=== PATIENT | female | born 2005 | race Two or more races ===

== ENCOUNTER 2025-02-12 07:02 | Inpatient (IN) | payer MEDICAID, SELFPAY ==
[2025-02-12] VITALS (29 sets, daily range): BP systolic 116–135; BP diastolic 66–82; PULSE 28–105; RESP 16–99; TEMP 36.7–37.2; O2SAT 80–100; BMI 20.3
[2025-02-12] MEDS: Ampicillin Inj 2,000 MG in SODIUM CHLORIDE 0.9% (POP) 100 ML 200 MG IV (07:51)
[2025-02-12] MEDS: MINERAL OIL 30 ML UDC TOP (08:31)
[2025-02-12] MEDS: OXYTOCIN in NS 20 units 20 UNIT/1,000 ML BAG 125 UNIT IV (08:31)
[2025-02-12] MEDS: BENZO/LANO/ALOE (Dermoplast) 60 GM CAN 1 SPRAY TOP (08:31)
--- NOTE | 2025-02-12 08:42 | PD.LDHP ---
Documentation for date of: 02/12/25 OB Labor/Induct. HPI History of Present Illness Chief complaint: no PNC / SROm / 37 weeks : 4 Para: 1 History of Vaginal deliveries: 1 History of sections: No History of : No MICHOACANO: 03/04/25 Gestational Age (weeks): 37 Gestational Age (days): 1 History of present illness: no PNC/ SROM at 0625 this am and UC History of Present Dating criteria: based on LMP only Adequate Care: No Ultrasounds: none Obstetrical complications: other (no PNC) Medical complications: other (unknown/ patient denies) Narrative: panel ordered Review of Systems Review of Systems Systems Reviewed: All systems reviewed, normal except as documented Past Medical History Surgical History SURGICAL: Negative Section Meds Home Medications and Allergies Home Medications ?Medication ?Instructions ?Recorded ?Confirmed ?Type vits no.130-ferrous fum tab 02/12/25 History 27 mg iron-folic acid 800 mcg tablet ( Vitamin) Allergies Allergy/AdvReac Type Severity Reaction Status Date / Time No Known Allergies Allergy Verified 12/25/23 19:13 OB Exam Physical Exam Vital signs: Pulse BP Pulse Ox 72 129/78 100 02/12/25 08:39 02/12/25 08:39 02/12/25 08:08 Narrative: Size equal to dates uterus non tender Alert and oriented x 3 no shortness of breath Pain no chest pain no palpitations Chest no wheezing CVS regular rate and rhythm No CVAT Abdomen nontender, normal bowel sounds No guarding no rigidity No hernias regular/ contractions non tender FHR is category 1 feta presentation is vertex cervix 5 cm, grossly SROm OB Results Labs 02/13/25 05:24 OB Assessment & Plan Assessment and Plan (1) PROM with onset of labor within 24 hours of rupture: Status: Acute (2) 37 weeks gestation of : Status: Acute (3) Insufficient care, delivered, current hospitalization: Status: Acute Additional Plan Plan: GBS prophylaxis tx Additional Plan Comment: admit /anticipate vaginal delivery / labs/ Tox screen (1) PROM with onset of labor within 24 hours of rupture Qualifiers: PROM gestational age: unspecified gestational age Qualified Code(s): O42.00 - Premature rupture of membranes, onset of labor within 24 hours of rupture, unspecified weeks of gestation
--- NOTE | 2025-02-12 08:50 | PD.LDDELS ---
Data (Flynn) Data Hx Section: No Maternal Blood Type: O Pos : 4 Para: 1 Delivery Data (Flynn) Labor Data Initiation of labor: Spontaneous Induction/Augmentation Agent: None ROM date: 02/12/25 Amniotic membrane rupture type: Spontaneous Amniotic fluid description: Clear Delivery Data Gestational age (weeks): 37 Gestational age (days): 1 Placenta delivery date: 02/12/25 Delivered by: Vivian Velez Delivery Method Delivery method: Normal Vaginal Delivery Presentation: Vertex position: OA Anesthesia Type Anesthesia Type: None Placenta Placenta delivery description: Spontaneous Episiotomy Episiotomy description: None EBL Estimated blood loss (ml): 150 Umbilical Cord cord description: 3 Vessels Data (Flynn) Data order: 1 's gender: Female
[2025-02-12 09:05] LABS: Amphetamine/Metham Scrn,Ur OB Negative (Negative); Benzoylecgonine Screen, Ur OB Negative (Negative); Opiate Screen,Urine OB Negative (Negative); THC Screen,Urine OB Negative (Negative)
[2025-02-12 09:11] LABS: Basophils # (Auto) 0.0 Thou/mm3 (0.0-0.2); Basophils % (Auto) 0 % (0-2.5); Eosinophils # (Auto) 0.0 Thou/mm3 (0.0-0.5); Eosinophils % (Auto) 0 % (0-10); Hematocrit 31.1 % (36.0-46.0); Hemoglobin 9.1 g/dL (12.0-16.0); Immature Granulocytes Auto 0.04 Thou/mm3 (0.00-0.00); Lymphocytes # (Auto) 2.0 Thou/mm3 (1.0-4.8); Lymphocytes % (Auto) 22 % (10-50); Mean Corpuscular HGB Conc 29.3 g/dl (31.0-37.0); Mean Corpuscular Hemoglobin 20.0 pg (25.0-35.0); Mean Corpuscular Volume 69 fL (80-100); Monocytes # (Auto) 0.6 Thou/mm3 (0.0-0.8); Monocytes % (Auto) 7 % (0-12); Neutrophils # (Auto) 6.0 Thou/mm3 (1.8-7.7); Neutrophils % (Auto) 70 % (37-80); Nucleated Red Blood Cell # 0.00 Thou/mm3 (0.00-0.00); Nucleated Red Blood Cell % 0 /100 WBC (0); Platelet Count 262 Thou/mm3 (140-440); RDW Standard Deviation 41.3 fL (36.4-46.3); Red Blood Count 4.54 Miln/mm3 (4.00-5.20); White Blood Count 8.7 Thou/mm3 (3.6-11.0)
[2025-02-12 11:50] LABS: HIV (1&2) Antibody Rapid Non-Reactive
[2025-02-12 13:34] LABS: Basophils # (Auto) 0.0 Thou/mm3 (0.0-0.2); Basophils % (Auto) 0 % (0-2.5); Eosinophils # (Auto) 0.0 Thou/mm3 (0.0-0.5); Eosinophils % (Auto) 0 % (0-10); Hematocrit 26.2 % (36.0-46.0); Immature Granulocytes Auto 0.03 Thou/mm3 (0.00-0.00); Lymphocytes # (Auto) 1.1 Thou/mm3 (1.0-4.8); Lymphocytes % (Auto) 10 % (10-50); Mean Corpuscular HGB Conc 29.4 g/dl (31.0-37.0); Mean Corpuscular Hemoglobin 20.2 pg (25.0-35.0); Mean Corpuscular Volume 69 fL (80-100); Monocytes # (Auto) 0.6 Thou/mm3 (0.0-0.8); Monocytes % (Auto) 5 % (0-12); Neutrophils # (Auto) 9.1 Thou/mm3 (1.8-7.7); Neutrophils % (Auto) 85 % (37-80); Nucleated Red Blood Cell # 0.00 Thou/mm3 (0.00-0.00); Nucleated Red Blood Cell % 0 /100 WBC (0); Platelet Count 193 Thou/mm3 (140-440); RDW Standard Deviation 41.2 fL (36.4-46.3); Red Blood Count 3.81 Miln/mm3 (4.00-5.20); White Blood Count 10.7 Thou/mm3 (3.6-11.0)
[2025-02-12 13:42] LABS: Hemoglobin 7.7 g/dL (12.0-16.0)
--- NOTE | 2025-02-12 15:00 | PC.NURSE ---
DR. DIETZ AWARE OF DECREASE IN HGB/HCT. ORDERS RECEIVED FOR LABS IN AM.
[2025-02-12 15:58] LABS: Path Review Blood Smear Sent to Pathologist
[2025-02-12 16:40] LABS: Syphilis Nonreactive (Nonreactive)
[2025-02-12 19:41] LABS: Chlamydia trachomatis PCR Negative (Not Detect); Neisseria Gonorrhoeae DNA PCR Negative (Not Detect); Trichomonas Negative (Negative)
--- NOTE | 2025-02-12 21:03 | PC.NURSE ---
Access pt's chart to assist primary nurse.
[2025-02-12 22:42] LABS: Hepatitis B Surface Antigen Non Reactive (Non React); Rubella, IgG Antibody Reactive (Immune)
[2025-02-13 03:50] VITALS: BP 118/76; PULSE 89; RESP 18; TEMP 37.1; O2SAT 97
[2025-02-13] MEDS: IBUPROFEN TAB 400 MG TABLET 600 MG PO (04:18)
[2025-02-13 05:53] LABS: Basophils # (Auto) 0.0 Thou/mm3 (0.0-0.2); Basophils % (Auto) 0 % (0-2.5); Eosinophils # (Auto) 0.1 Thou/mm3 (0.0-0.5); Eosinophils % (Auto) 1 % (0-10); Hematocrit 25.7 % (36.0-46.0); Immature Granulocytes Auto 0.05 Thou/mm3 (0.00-0.00); Lymphocytes # (Auto) 2.0 Thou/mm3 (1.0-4.8); Lymphocytes % (Auto) 21 % (10-50); Mean Corpuscular HGB Conc 30.4 g/dl (31.0-37.0); Mean Corpuscular Hemoglobin 20.2 pg (25.0-35.0); Mean Corpuscular Volume 67 fL (80-100); Monocytes # (Auto) 0.6 Thou/mm3 (0.0-0.8); Monocytes % (Auto) 6 % (0-12); Neutrophils # (Auto) 6.8 Thou/mm3 (1.8-7.7); Neutrophils % (Auto) 71 % (37-80); Nucleated Red Blood Cell # 0.00 Thou/mm3 (0.00-0.00); Nucleated Red Blood Cell % 0 /100 WBC (0); Platelet Count 191 Thou/mm3 (140-440); RDW Standard Deviation 39.8 fL (36.4-46.3); Red Blood Count 3.86 Miln/mm3 (4.00-5.20); White Blood Count 9.5 Thou/mm3 (3.6-11.0)
[2025-02-13 06:08] LABS: Hemoglobin 7.8 g/dL (12.0-16.0)
[2025-02-13 07:00] VITALS: BP 128/85; PULSE 71; RESP 16; TEMP 36.7; O2SAT 99
--- NOTE | 2025-02-13 08:24 | PD.LDPPPRG ---
Subjective Subjective Interval history: The patient is a 19-year-old G4 now P2012 status post vaginal delivery 02/12/2025 at 8:[address] Veras admitted and delivered the patient. She came in by ambulance approximately 6:15 in the morning in active labor 5 to 6 cm dilated 02/12/2025. This morning the patient is day #1. She is resting comfortably in bed. She appears quite pale. Her predelivery hemoglobin was 9.1 today, her post deliveryhemoglobin is down to 7.8. The patient did not get care this . She was getting vitamins from a [facility] provider. We had no records available at delivery. Her drug screen was negative and all labs are up-to-date and on the chart and normal. The patient would like to be discharged later today. She is voiding, tolerating a general diet, and passing flatus. Her bleeding is minimal. Exam Vital Signs Temp Pulse Resp BP Pulse Ox O2 Del Method 98.1 F 71 16 128/85 H 99 Room Air 02/13/25 07:00 02/13/25 07:00 02/13/25 07:00 02/13/25 07:00 02/13/25 07:00 02/13/25 07:00 Narrative Exam Patient is alert and oriented x 3 in no apparent distress. Fundus is firm. Extremities showed no significant edema or erythema. Objective Labs 02/13/25 05:24 Labs: Laboratory Results - last 24 hr 02/12/25 02/12/25 02/12/25 08:17 08:20 11:05 WBC 8.7 RBC 4.54 Hgb 9.1 L Hct 31.1 L MCV 69 L MCH 20.0 L MCHC 29.3 L RDW Std Deviation 41.3 Plt Count 262 Neut % (Auto) 70 Lymph % (Auto) 22 [place] % (Auto) 7 Eos % (Auto) 0 Baso % (Auto) 0 Neut # (Auto) 6.0 Lymph # (Auto) 2.0 [place] # (Auto) 0.6 Eos # (Auto) 0.0 Baso # (Auto) 0.0 Immature Gran # (Auto) 0.04 H Absolute Nucleated RBC 0.00 Immature Gran % 1 H Nucleated RBC % 0 Smear Path Review Sent to Pathologist Urine Opiates Screen Negative U Amphetamin/Meth Scrn Negative U Cocaine Metab Screen Negative U Marijuana (THC) Screen Negative Syphilis Serology Nonreactive Chlam trachomat DNA PCR Negative Hep Bs Antigen Non Reactive HIV 1&2 Antibody Rapid Non-Reactive N.gonorrhoeae DNA (PCR) Negative Rubella IgG Antibody Reactive (Immune) Trichomonas DNA Probe Negative Blood Type O Positive Antibody Screen NEGATIVE Blood Bank Wristband ID Yes 02/12/25 02/13/25 13:13 05:24 WBC 10.7 9.5 RBC 3.81 L 3.86 L Hgb 7.7 L 7.8 L Hct 26.2 L 25.7 L MCV 69 L 67 L MCH 20.2 L 20.2 L MCHC 29.4 L 30.4 L RDW Std Deviation 41.2 39.8 Plt Count 193 D 191 Neut % (Auto) 85 H 71 Lymph % (Auto) 10 21 [place] % (Auto) 5 6 Eos % (Auto) 0 1 Baso % (Auto) 0 0 Neut # (Auto) 9.1 H 6.8 Lymph # (Auto) 1.1 2.0 [place] # (Auto) 0.6 0.6 Eos # (Auto) 0.0 0.1 Baso # (Auto) 0.0 0.0 Immature Gran # (Auto) 0.03 H 0.05 H Absolute Nucleated RBC 0.00 0.00 Immature Gran % 0 1 H Nucleated RBC % 0 0 Smear Path Review Cancelled Urine Opiates Screen U Amphetamin/Meth Scrn U Cocaine Metab Screen U Marijuana (THC) Screen Syphilis Serology Chlam trachomat DNA PCR Hep Bs Antigen HIV 1&2 Antibody Rapid N.gonorrhoeae DNA (PCR) Rubella IgG Antibody Trichomonas DNA Probe Blood Type Antibody Screen Blood Bank Wristband ID Assessment & Plan Problem List (1) 37 weeks gestation of : Status: Acute (2) No care in current : Problem details: Social work consult post . Status: Acute (3) care following vaginal delivery: Problem details: Discharge home. Discharge instructions given. IV iron as patient is anemic. Encouraged patient to follow-up in our clinic in 2 weeks and 6 weeks. Encouraged high iron diet. Status: Acute Time Spent With Patient Time: Total time spent is greater than 50% in coordination of care (as documented) at patient's floor/unit and/or counseling patient: Time with patient: less than 15 minutes
--- NOTE | 2025-02-13 08:34 | ESDS_ITS ---
DS: Providers Provider Date of admission: 02/12/25 07:08 Primary care physician: Physician No Primary/Family Admitting Provider: Manda Veras MD Attending Provider on Admission: Annie Josue CNM Consults: 02/12/25 08:52 Referral Routine Comment: Attending Provider on DC: Katie Shah MD ([facility]) Discharging Provider: Katie Shah MD ([facility] Clinic) Anticipated date of discharge: 02/13/25 DS: Diagnosis Discharge Diagnosis (1) care following vaginal delivery: Status: Acute Assessment & Plan: IV iron given. Patient to continue her vitamins at home. She is anemic. Follow-up in clinic in 2 weeks check CBC then. High iron diet prescribed. (2) No care in current : Status: Acute Assessment & Plan: All care labs drawn and normal. UDS negative. Social work consult prior to discharge. (3) 37 weeks gestation of : Status: Acute Problem List Completed Was Problem List Reviewed/Reconciled?: Yes Summary/Hosp Course Brief History: The patient is a 19-year-old -0-1-[address] Veras the morning of 02/12/2025 in active labor. She presented by ambulance 5 cm dilated. Please see history and physical for further details. Hospital course: Patient underwent a vaginal delivery approximately 8:30 in the morning on 02/12/2025. She was delivered by Dr. Veras. Please see delivery notes for further details. On post day #1 patient was resting comfortably. She was voiding tolerating a general diet passing flatus. Her bleeding was minimal. She presented to the hospital anemic with a hemoglobin of 9.1 her hemoglobin was stable and checked twice post and it was 7.8. Her vital signs were stable. Patient was given 1 dose of IV iron and told to take her vitamins and iron as an outpatient also eat high iron food. Patient did not have care this and had a social work consult prior to discharge. She has a 1-year-old at home. Peripartum Data Delivery Method: Normal Vaginal Delivery Episiotomy Description: None Laceration Description: see Delivery Summary complications: none Status at Discharge Cognitive/behavioral status at discharge: Patient is alert and orient x 3 in no apparent distress Functional status at discharge: independent ambulation Overall status at discharge: patient is progressing back to baseline Time Spent with Patient Time attestation: Total time spent providing and/or coordinating discharge services: Time spent: Less than 30 minutes Specific discharge activities: Pelvic rest x 6 weeks. No intercourse tampons douching x 6 weeks. High iron diet. Follow-up in the [place] [facility] in 2 weeks in 6 weeks. Exam Vital Signs Temp Pulse Resp BP Pulse Ox O2 Del Method 98.1 F 71 16 128/85 H 99 Room Air 02/13/25 07:00 02/13/25 07:00 02/13/25 07:00 02/13/25 07:00 02/13/25 07:00 02/13/25 07:00 Narrative Exam Patient is alert and orient x 3 in no apparent distress she is pale but cooperative. Fundus is firm at umbilicus extremities show no significant edema or erythema Discharge Plan Plan Patient Disposition: HOME (Self Care) Disposition Comment: Stable Patient condition on transfer: Stable Prescriptions/Referrals Prescriptions/Med Rec: New acetaminophen 325 mg Tablet 325 mg PO Q4HR PRN (Reason: Patient rated pain 1 to 2) Qty: 30 0RF ibuprofen 400 mg Tablet 600 mg PO Q6HR PRN (Reason: PAIN 1-3 OR FEVER > 101) Qty: 60 0RF Continued Vitamin 27 mg iron- 800 mcg tablet Discontinued Vitamin Tablet 1 tab PO QDAY Referrals: No Primary/Family,Physician [Primary Care Provider] Patient/Caregiver Discharge Instructions Discharge Activity: activity as tolerated Other Discharge Activity Instructions:: Pelvic rest x 6 weeks Other Discharge Diet Instructions: High iron as documented Education Materials: After Delivery Concerns, Feel Healthy After Print Language: Zambian Activity Restrictions/Additional Instructions: Pelvic rest x 6 weeks. No heavy lifting intercourse tampons douching x 6 weeks. Call with severe depression heavy bleeding or other concerns. Follow-up at the [place] [facility] phone [phone] in 1-2 weeks Stand Alone Forms: Joi Award Info., Patient Portal Info Letter Discharge Order Discharge Orders: Discharge (Routine); Ordered 02/13/25 Ordered By: Katie Shah (OB Clinic) Planned Discharge Date 02/13/25 (2) No care in current Qualifiers: Trimester: third trimester Qualified Code(s): O09.33 - Supervision of with insufficient care, third trimester
[2025-02-13] MEDS: FERRIC SOD GLUC INJ 125 MG in SODIUM CHLORIDE 0.9% 100 ML 110 MG IV (08:35)
--- NOTE | 2025-02-13 11:05 | PC.SS ---
FIELD SEISMOLOGIST conducted bedside contact with the patient to address nursing referral indicating patient displayed poor care.? FIELD SEISMOLOGIST informed that patient participated in only 1 OB appointment. FIELD SEISMOLOGIST introduced self and role.? At bedside with patient was Moo PAEZ.? Patient gave permission for FOB to be present during discussion.? FIELD SEISMOLOGIST reviewed basis of referral.? Patient confirmed attending only [address] [facility].? Patient stated initially not being aware that she was .? Patient stated that inability to possess transportation or care for 1 year old barriers to OB appointment.? Patient acknowledged importance of OB services.? , Aria; delivered naturally.? Patient plans on bottle feeding infant.? Patient is receiving WIC, SNAP and TANF.? Patient denies history of alcohol/drug abuse.? Patient denies CWS intervention.? Patient denies episodes of domestic violence.? Patient reports history of anxiety.? No impairment with daily functioning.? FOB voiced no concern with patient?s current emotional status.? FIELD SEISMOLOGIST discussed post- depression with the patient.? Reports no current presence of symptoms. ?Patient denied possessing post- depression following previous .? Patient has access to appropriate supplies and equipment; to include a car seat.? FOB?s family will provide transportation upon discharge.? Patient describes possessing support system consisting of parents and extended family.? FIELD SEISMOLOGIST observed the patient to be interacting appropriately with the .? Holding and comforting infant during discussion with FIELD SEISMOLOGIST.? FIELD SEISMOLOGIST provided the patient with community resources to include Parenting Network and Warm Line.? No further intervention required at this time, healthcare social worker will be available to address any further concerns.? FIELD SEISMOLOGIST updated bedside nurse.?
== END 2025-02-13 11:30 | disposition home or self-care (01) | DRG 560 ==
LOC: S4SX 09:08 → S4NX 13:16
PROVIDERS: Admitting Provider Obstetrics & Gynecology; Visit Provider Advanced Practice Midwife
DX: O42.02 Full-term premature rupture of membranes, onset of labor within 24 hours of rupture (principal); Z37.0 Single live birth; Z3A.37 37 weeks gestation of pregnancy; O99.02 Anemia complicating childbirth
CPT/HCPCS: 36415; 80307; 85025; 86703; 86762; 86780; 86850; 86900; 86901; 87340; 87491; 87591; 87661; J0290; J2590; J2916; J7050; A9270